=== PATIENT | female | born 1955 | race Caucasian/White ===

== ENCOUNTER → 2024-02-02 | Outpatient (CLI) | payer MEDICARE, BC, SELFPAY ==
--- NOTE | 2024-02-02 12:41 | DI.RAD.S_ITS ---
PROCEDURE: FL SHOULDER INJECTION MR/CT LT INDICATIONS: Pain in left shoulder COMPARISON: [facility], MR, MR SHOULDER LT W CON, 02/02/2024, 13:45. TECHNIQUE: The indications, alternatives, benefits, risks, and complications of the procedure were explained to the patient. Written informed consent was obtained and placed in the chart. The shoulder was examined fluoroscopically and a site for needle placement chosen for entry into the glenohumeral joint from an anterior approach. The skin was prepped and draped in a sterile fashion, and 1% lidocaine infiltrated from skin down to joint capsule. A spinal needle was inserted into the glenohumeral joint, and a small amount of iodinated contrast media injected to confirm intra-articular placement of the needle tip. This was followed by approximately 12 mL dilute solution of a gadolinium containing MR contrast agent. The needle was removed and a dressing was applied. The patient was given postprocedural instructions and sent to the MR suite for MR imaging. FINDINGS: A single fluoroscopic spot image demonstrates intra-articular location of injected iodinated contrast. IMPRESSION: Successful fluoroscopically guided administration of dilute Gadolinium solution into the shoulder joint for MR arthrogram. Dictated by: Juan Mazariegos M.D. on 02/02/2024 at 17:27 Approved by: Juan Mazariegos M.D. on 02/02/2024 at 17:28
--- NOTE | 2024-02-02 14:30 | DI.MRI.S_ITS ---
PROCEDURE: MR SHOULDER LT W CON INDICATIONS: Pain in left shoulder TECHNIQUE: After the administration of 12 mL of dilute intra-articular Gadolinium contrast, oblique coronal T1 and T2 spin echo with fat saturation, oblique sagittal T1 spin echo with and without fat saturation, oblique sagittal T2 fast spin echo with fat saturation, axial T1 spin echo with fat saturation through the shoulder. COMPARISON: None. FINDINGS: Image quality: Excellent. Rotator cuff: In the supraspinatus, there is low-grade interstitial tear at the anterior footprint. There is high-grade, articular sided tear at the critical zone of the anterior fiber (series 8, image 9). No full-thickness tear of the supraspinatus. The infraspinatus is unremarkable. The teres minor is unremarkable. The subscapularis is unremarkable. No muscle edema or fatty atrophy. Bones and bursae: Mild degenerative changes of the acromioclavicular joint. Type 1 acromion. No os acromial. Mild subacromial/subdeltoid bursitis. Mild subchondral cystic changes at the posterior humeral head, reactive. No focal chondral defects of the glenohumeral joint. No acute fracture. Capsule and soft tissues: Tear of the superior labrum., extending anteriorly to the anterior superior labrum. No paralabral cyst. The extra-articular biceps tendon is intact. Mild tendinosis of the intra-articular biceps tendon, without tear. Injected contrast distends the glenohumeral joint and the subcoracoid bursa. IMPRESSION: 1. High-grade tear of the anterior fibers of the supraspinatus. 2. Mild degenerative changes of the acromioclavicular joint. 3. Labral tear. Dictated by: Lindsay Argueta M.D. on 02/02/2024 at 20:29 Approved by: Lindsay Argueta M.D. on 02/02/2024 at 20:36
[2024-02-02] MEDS: LIDOCAINE 1% 20 ML INJ (14:50)
[2024-02-02] MEDS: SODIUM CHLORIDE 0.9 % 20 ML VIAL IV (14:51)
== END ==
PROVIDERS: PCP Internal Medicine; Referring Provider Internal Medicine; Visit Provider Internal Medicine
DX: M75.111 Incomplete rotator cuff tear or rupture of right shoulder, not specified as traumatic (principal); S43.492A Other sprain of left shoulder joint, initial encounter; M25.512 Pain in left shoulder
CPT/HCPCS: 23350; 73040; 73222; A9579